=== PATIENT | female | born 1945 | race Two or more races ===

== ENCOUNTER 2017-12-28 20:49 | Emergency (ER) | payer BC, OTHER ==
[~2017-12-28] VITALS: Ht 157.5 cm; Wt 69.0 kg
[~2017-12-28 20:49] MED LIST: ACET-3161 PO; KEPP500 PO
[2017-12-28] MEDS ORDERED: TETANUS, DIPHTHERIA, PERTUSSIS VAC/PF 0.5ML (>7YR OLD) IM ONE (21:30)
[2017-12-28] MEDS ORDERED: SULFAMETHOXAZOLE/TRIMETHOPRIM 800/160MG TABLET PO ONE (21:30)
[2017-12-28] MEDS ORDERED: CEFTRIAXONE SODIUM 1 G/VIAL IM ONE (21:30)
[2017-12-28 21:55] LABS: BASOPHILS % 1.1 % (0.0-2.0); EOSINOPHILS % 2.6 % (0.0-5.0); HEMATOCRIT. 39.3 % (36.0-48.0); HEMOGLOBIN. 13.5 g/dL (12.0-16.0); LYMPHOCYTES % 30.7 % (20.0-50.0); MEAN CORPUSCULAR HEMOGLOBIN 31.7 pg (28.0-32.0); MEAN CORPUSCULAR VOLUME 92.4 fL (81.0-99.0); MEAN PLATELET VOLUME 8.9 fl (7.4-10.4); NEUTROPHILS % 57.6 % (40.0-76.0); PLATELET 166 x1000/uL (130-400); RED BLOOD CELL COUNT 4.26 mill/uL (4.2-5.4); RED CELL DISTRIBUTION WIDTH 14.4 % (11.6-14.6)
[2017-12-28 22:00] LABS: CHLORIDE 109 mEq/L (98-107)
[2017-12-28 22:03] LABS: INR 0.9; PROTHROMBIN TIME 9.3 sec (9.1-11.1)
[2017-12-28 23:40] VITALS: BP 169/62
== END 2017-12-29 00:19 | disposition home or self-care (01) ==
LOC: ER 22:15
DX: L03.115 Cellulitis of right lower limb (principal); B99.9 Unspecified infectious disease; Z79.899 Other long term (current) drug therapy
CPT/HCPCS: 36415; 73560; 80053; 85025; 85610; 90715; 96372; 99285; J0696; X7700; Z7610

== ENCOUNTER 2019-02-22 02:06 | Emergency (ER) | payer BC ==
[~2019-02-22] VITALS: Ht 157.5 cm; Wt 66.0 kg
[2019-02-22 04:49] VITALS: BP 168/73
== END 2019-02-22 04:54 | disposition home or self-care (01) ==
LOC: ER 02:06
DX: H60.91 Unspecified otitis externa, right ear (principal); H61.21 Impacted cerumen, right ear; I10 Essential (primary) hypertension; Z86.718 Personal history of other venous thrombosis and embolism
CPT/HCPCS: 99283; Z7610

== ENCOUNTER → 2020-11-28 | Outpatient (CLI) | payer BC ==
[2020-11-28 09:28] LABS: CHLORIDE 111 mEq/L (98-107)
[2020-11-28 09:37] LABS: T4 FREE 0.92 ng/dL (0.76-1.46); TOTAL IRON BINDING CAPACITY 277 ug/dL (250-450)
[2020-11-28 09:41] LABS: BASOPHILS % 1.2 % (0.0-2.0); EOSINOPHILS % 3.2 % (0.0-5.0); HEMATOCRIT. 38.6 % (36.0-48.0); HEMOGLOBIN. 13.4 g/dL (12.0-16.0); LYMPHOCYTES % 26.9 % (20.0-50.0); MEAN CORPUSCULAR HEMOGLOBIN 32.1 pg (28.0-32.0); MEAN CORPUSCULAR VOLUME 92.5 fL (81.0-99.0); MEAN PLATELET VOLUME 8.5 fl (7.4-10.4); MONOCYTES % 7.3 % (2.0-8.0); NEUTROPHILS % 61.4 % (40.0-76.0); PLATELET 166 x1000/uL (130-400); RED BLOOD CELL COUNT 4.17 mill/uL (4.2-5.4); RED CELL DISTRIBUTION WIDTH 13.8 % (11.6-14.6)
[2020-11-28 14:12] LABS: FOLIC ACID (FOLATE) SERUM 9.8 ng/mL (>5.38)
== END | disposition home or self-care (01) ==
LOC: LAB 08:49
PROVIDERS: ATTEND Family Medicine Adult Medicine
DX: Z00.00 Encounter for general adult medical examination without abnormal findings (principal); I10 Essential (primary) hypertension
CPT/HCPCS: 36415; 80053; 82306; 82728; 82746; 83036; 83540; 83550; 83880; 84439; 84443; 84481; 85025

== ENCOUNTER → 2021-05-21 | Outpatient (CLI) | payer BC | END | disposition home or self-care (01) | LOC: MRI 10:38 | PROVIDERS: ATTEND Podiatrist Foot & Ankle Surgery | DX: S96.812A Strain of other specified muscles and tendons at ankle and foot level, left foot, initial encounter (principal); S92.192D Other fracture of left talus, subsequent encounter for fracture with routine healing; R60.0 Localized edema; X58.XXXD Exposure to other specified factors, subsequent encounter; X58.XXXA Exposure to other specified factors, initial encounter; Y93.89 Activity, other specified; Y92.89 Other specified places as the place of occurrence of the external cause; Y99.8 Other external cause status | CPT/HCPCS: 73721 ==

== ENCOUNTER → 2021-08-14 | Outpatient (CLI) | payer BC ==
[2021-08-14 09:58] LABS: BASOPHILS % 1.7 % (0.0-2.0); EOSINOPHILS % 3.3 % (0.0-5.0); HEMATOCRIT. 34.8 % (36.0-48.0); HEMOGLOBIN. 12.2 g/dL (12.0-16.0); LYMPHOCYTES % 32.5 % (20.0-50.0); MEAN CORPUSCULAR HEMOGLOBIN 32.6 pg (28.0-32.0); MEAN CORPUSCULAR VOLUME 92.9 fL (81.0-99.0); MEAN PLATELET VOLUME 8.5 fl (7.4-10.4); MONOCYTES % 6.5 % (2.0-8.0); PLATELET 175 x1000/uL (130-400); RED BLOOD CELL COUNT 3.75 mill/uL (4.2-5.4); RED CELL DISTRIBUTION WIDTH 14.7 % (11.6-14.6)
[2021-08-14 10:06] LABS: CHLORIDE 107 mEq/L (98-107)
[2021-08-14 10:23] LABS: HDL CHOLESTEROL 55 mg/dL (40-59); LDL CHOLESTEROL 168 mg/dL (5-100); TOTAL IRON BINDING CAPACITY 295 ug/dL (250-450)
[2021-08-14 10:43] LABS: FOLIC ACID (FOLATE) SERUM 10.4 ng/mL (>5.38)
== END | disposition home or self-care (01) ==
LOC: LAB 09:27
PROVIDERS: ATTEND Specialist
DX: Z00.00 Encounter for general adult medical examination without abnormal findings (principal); I10 Essential (primary) hypertension; E55.9 Vitamin D deficiency, unspecified
CPT/HCPCS: 36415; 80053; 80061; 82607; 82652; 82728; 82746; 83036; 83540; 83550; 84439; 84443; 84481; 85025

== ENCOUNTER → 2022-04-01 | Outpatient (CLI) | payer BC | END | disposition home or self-care (01) | LOC: RAD 10:45 | DX: S99.921D Unspecified injury of right foot, subsequent encounter (principal); M79.671 Pain in right foot; X58.XXXD Exposure to other specified factors, subsequent encounter | CPT/HCPCS: 73610; 73630 ==

== ENCOUNTER → 2023-04-25 | Outpatient (CLI) | payer BC | END | disposition home or self-care (01) | LOC: RAD 08:25 | PROVIDERS: ATTEND Family Medicine Adult Medicine | DX: M25.561 Pain in right knee (principal) | CPT/HCPCS: 73564 ==